=== PATIENT | female | born 1955 | race Caucasian/White ===

== ENCOUNTER 2021-04-05 15:52 | Emergency (ER) | payer MEDICARE, BC ==
[~2021-04-05] VITALS: Ht 167.6 cm; Wt 100.0 kg
[2021-04-05] MEDS ORDERED: ALLEGRA-D 2424 HOUR PO (19:32)
[2021-04-05] MEDS ORDERED: BACTRIM DS1 TAB PO (19:32)
[2021-04-05 19:38] VITALS: BP 180/80
== END 2021-04-05 20:04 | disposition home or self-care (01) ==
LOC: ED 15:52
DX: J01.80 Other acute sinusitis (principal); E11.9 Type 2 diabetes mellitus without complications; I50.9 Heart failure, unspecified; Z20.822 Contact with and (suspected) exposure to COVID-19

== ENCOUNTER 2022-02-11 09:00 | Day surgery (SDC) | payer MEDICARE, BC ==
[~2022-02-11] VITALS: Ht 167.6 cm; Wt 91.6 kg
[~2022-02-11 09:00] MED LIST: ALLEGRA-D 2424 HOUR PO; ASPIRIN81 MG PO; BACTRIM DS1 TAB PO; ELMIRON100 MG PO; ESTROVE1 PO; FARXIGA10 MG; FLUOXETINE20 MG PO; GABAPENTIN100 MG PO; GLIMEPIRIDE2 MG PO; IMIPRAMINE HCL10 MG PO; LIPITOR20 M1 PO; METFORMIN HCL1000 MG PO; METOPROL TAR25 MG PO; MULTI VIT PO; PANTOPRAZOLE SO40 M1 PO; ROPINIROLE0.5 MG PO; SPIRONOLACT50 MG PO; TRULICITY0.75 MG/0. IJ; VITA D-1000 PO; VITAMIN B-12500 MCG PO
[2022-02-11 12:30] VITALS: BP 130/76
== END 2022-02-11 12:20 | disposition home or self-care (01) ==
LOC: ORM 09:00
PROVIDERS: ATTEND Physical Medicine & Rehabilitation
DX: M54.16 Radiculopathy, lumbar region (principal); G89.4 Chronic pain syndrome; G62.9 Polyneuropathy, unspecified; M96.1 Postlaminectomy syndrome, not elsewhere classified
CPT/HCPCS: J1100; Q9967

== ENCOUNTER 2022-05-03 13:02 | Observation (INO) | payer MEDICARE, BC ==
[~2022-05-03] VITALS: Ht 167.6 cm; Wt 89.1 kg
[2022-05-03 16:23] LABS: BASO% 0.3 % (0-3); EOS% 2.3 % (0-8); HEMATOCRIT 42.3 % (37.0-47.0); HEMOGLOBIN 13.6 g/dl (12.0-16.0); IMMATURE GRANULOCYTES 0.5 % (0.0-5.0); LYMPH% 34.3 % (15-41); MEAN CELL VOLUME 87.6 fL CALC (80.0-100.0); MEAN CORPUSCULAR HGB 28.2 pG CALC (26.0-32.0); MEAN CORPUSCULAR HGB CONC 32.2 g/dL CAL (32.0-36.0); MONO% 9.7 % (2-13); NEUT# 3.27 thou/uL (2.00-7.15); NEUT% 52.9 % (42-76); RED BLOOD COUNT 4.83 mill/uL (4.20-5.60); RED CELL DISTRI WIDTH 14.2 % (11.5-15.5)
[2022-05-03 16:35] LABS: ALBUMIN 4.9 g/dL (3.2-5.0); ALKALINE PHOSPHATASE 62 u/l (38-126); ANION GAP 15 (6-22 (CALC)); BILIRUBIN, TOTAL 0.3 mg/dL (0.02-1.3); BUN 19 mg/dL (8-23); BUN/CREATININE RATIO 21 (12-20 (CALC)); CARBON DIOXIDE 25 mmol/l (22-30); CHLORIDE 102 mmol/l (95-108); CREATININE 0.9 mg/dL (0.5-1.0); GFR FOR AFR.AMER. > 60 ML/MIN (>=60 (CALC)); GFR OTHER RACES > 60 ML/MIN (>=60 (CALC)); LIPASE 49 u/l (23-300); POTASSIUM 4.5 mmol/l (3.5-5.1); SGOT/AST 51 u/l (9-36); SODIUM 137 mmol/l (137-146); TOTAL PROTEIN 8.9 g/dL (6.3-8.2)
[2022-05-04] VITALS (7 sets, daily range): BP systolic 98–151; BP diastolic 48–90
[2022-05-04 08:41] LABS: C. DIFFICILE TOXIN A&B NEGATIVE (NEGATIVE)
[2022-05-05 03:52] LABS: BASO% 0.3 % (0-3); EOS% 1.9 % (0-8); HEMOGLOBIN 13.7 g/dl (12.0-16.0); IMMATURE GRANULOCYTES 0.6 % (0.0-5.0); LYMPH% 28.5 % (15-41); MEAN CELL VOLUME 87.7 fL CALC (80.0-100.0); MEAN CORPUSCULAR HGB 28.6 pG CALC (26.0-32.0); MEAN CORPUSCULAR HGB CONC 32.6 g/dL CAL (32.0-36.0); MONO% 6.3 % (2-13); NEUT# 4.36 thou/uL (2.00-7.15); NEUT% 62.4 % (42-76); RED BLOOD COUNT 4.79 mill/uL (4.20-5.60); RED CELL DISTRI WIDTH 14.4 % (11.5-15.5)
[2022-05-05 04:03] LABS: ALBUMIN 4.7 g/dL (3.2-5.0); ALKALINE PHOSPHATASE 64 u/l (38-126); ANION GAP 15 (6-22 (CALC)); BILIRUBIN, TOTAL 0.3 mg/dL (0.02-1.3); BUN 14 mg/dL (8-23); BUN/CREATININE RATIO 16 (12-20 (CALC)); CHLORIDE 107 mmol/l (95-108); CREATININE 0.8 mg/dL (0.5-1.0); GFR FOR AFR.AMER. > 60 ML/MIN (>=60 (CALC)); GFR OTHER RACES > 60 ML/MIN (>=60 (CALC)); POTASSIUM 4.4 mmol/l (3.5-5.1); SGOT/AST 44 u/l (9-36); SODIUM 137 mmol/l (137-146); TOTAL PROTEIN 8.5 g/dL (6.3-8.2)
[2022-05-05 04:05] LABS: CARBON DIOXIDE 19 mmol/l (22-30)
[2022-05-05 07:13] VITALS: BP 134/69
[2022-05-05 09:10] VITALS: BP 123/63
[2022-05-05 10:55] VITALS: BP 127/78
[2022-05-05 14:27] VITALS: BP 105/56
[2022-05-05 19:03] VITALS: BP 141/58
[2022-05-06] VITALS (8 sets, daily range): BP systolic 122–169; BP diastolic 58–78
[2022-05-06 06:19] LABS: ALBUMIN 4.6 g/dL (3.2-5.0); ALKALINE PHOSPHATASE 73 u/l (38-126); ANION GAP 15 (6-22 (CALC)); BASO% 0.2 % (0-3); BILIRUBIN, TOTAL 0.3 mg/dL (0.02-1.3); BUN 13 mg/dL (8-23); BUN/CREATININE RATIO 17 (12-20 (CALC)); CARBON DIOXIDE 18 mmol/l (22-30); CHLORIDE 107 mmol/l (95-108); CREATININE 0.7 mg/dL (0.5-1.0); EOS% 1.9 % (0-8); GFR FOR AFR.AMER. > 60 ML/MIN (>=60 (CALC)); GFR OTHER RACES > 60 ML/MIN (>=60 (CALC)); HEMATOCRIT 43.7 % (37.0-47.0); HEMOGLOBIN 14.1 g/dl (12.0-16.0); IMMATURE GRANULOCYTES 0.5 % (0.0-5.0); LYMPH% 25.1 % (15-41); MEAN CELL VOLUME 88.6 fL CALC (80.0-100.0); MEAN CORPUSCULAR HGB 28.6 pG CALC (26.0-32.0); MEAN CORPUSCULAR HGB CONC 32.3 g/dL CAL (32.0-36.0); MONO% 7.7 % (2-13); NEUT# 3.79 thou/uL (2.00-7.15); NEUT% 64.6 % (42-76); RED BLOOD COUNT 4.93 mill/uL (4.20-5.60); RED CELL DISTRI WIDTH 14.3 % (11.5-15.5); SGOT/AST 37 u/l (9-36); SODIUM 136 mmol/l (137-146); TOTAL PROTEIN 8.3 g/dL (6.3-8.2)
[2022-05-06 06:24] LABS: POTASSIUM 3.5 mmol/l (3.5-5.1)
[2022-05-07 04:18] VITALS: BP 125/60
[2022-05-07 06:12] LABS: BASO% 0.6 % (0-3); EOS% 1.7 % (0-8); HEMATOCRIT 42.6 % (37.0-47.0); HEMOGLOBIN 13.9 g/dl (12.0-16.0); IMMATURE GRANULOCYTES 0.6 % (0.0-5.0); LYMPH% 34.2 % (15-41); MEAN CELL VOLUME 87.1 fL CALC (80.0-100.0); MEAN CORPUSCULAR HGB 28.4 pG CALC (26.0-32.0); MEAN CORPUSCULAR HGB CONC 32.6 g/dL CAL (32.0-36.0); MONO% 8.9 % (2-13); NEUT# 2.78 thou/uL (2.00-7.15); RED BLOOD COUNT 4.89 mill/uL (4.20-5.60); RED CELL DISTRI WIDTH 14.3 % (11.5-15.5)
[2022-05-07 06:34] LABS: ALBUMIN 4.2 g/dL (3.2-5.0); ALKALINE PHOSPHATASE 66 u/l (38-126); ANION GAP 14 (6-22 (CALC)); BILIRUBIN, TOTAL 0.4 mg/dL (0.02-1.3); BUN 9 mg/dL (8-23); BUN/CREATININE RATIO 13 (12-20 (CALC)); CARBON DIOXIDE 18 mmol/l (22-30); CHLORIDE 110 mmol/l (95-108); CREATININE 0.7 mg/dL (0.5-1.0); GFR FOR AFR.AMER. > 60 ML/MIN (>=60 (CALC)); GFR OTHER RACES > 60 ML/MIN (>=60 (CALC)); POTASSIUM 3.5 mmol/l (3.5-5.1); SGOT/AST 41 u/l (9-36); SODIUM 138 mmol/l (137-146); TOTAL PROTEIN 7.6 g/dL (6.3-8.2)
[2022-05-07 07:00] VITALS: BP 128/59
[2022-05-07 10:25] VITALS: BP 108/59
[2022-05-07 14:25] VITALS: BP 125/92
== END 2022-05-07 16:02 | disposition home health service (06) ==
LOC: ED 13:02 → MS2 19:17
PROVIDERS: Emergency Medicine; Nurse Practitioner Family; ADMIT Internal Medicine; ATTEND Internal Medicine
DX: G43.909 Migraine, unspecified, not intractable, without status migrainosus (principal); R19.7 Diarrhea, unspecified; E86.0 Dehydration; E11.649 Type 2 diabetes mellitus with hypoglycemia without coma; K58.9 Irritable bowel syndrome, unspecified; I50.9 Heart failure, unspecified; M79.7 Fibromyalgia; I73.00 Raynaud's syndrome without gangrene; Z79.84 Long term (current) use of oral hypoglycemic drugs; Z20.822 Contact with and (suspected) exposure to COVID-19
CPT/HCPCS: J1650; Q9967

== ENCOUNTER 2022-06-03 07:01 | Day surgery (SDC) | payer MEDICARE, BC ==
[~2022-06-03] VITALS: Ht 167.6 cm; Wt 91.6 kg
[~2022-06-03 07:01] MED LIST changes: +LISINOPRIL5 MG PO; +TIZANIDINE2 MG PO
[2022-06-03 10:43] VITALS: BP 181/89
== END 2022-06-03 10:30 | disposition home or self-care (01) ==
LOC: ORM 07:01
PROVIDERS: ATTEND Physical Medicine & Rehabilitation
DX: M54.16 Radiculopathy, lumbar region (principal); M96.1 Postlaminectomy syndrome, not elsewhere classified
CPT/HCPCS: J1100; Q9966

== ENCOUNTER 2023-03-24 07:23 | Day surgery (SDC) | payer MEDICARE, BC ==
[~2023-03-24] VITALS: Ht 167.6 cm; Wt 87.5 kg
[2023-03-24 10:17] VITALS: BP 152/90
== END 2023-03-24 09:40 | disposition home or self-care (01) ==
LOC: ORM 07:23
PROVIDERS: ATTEND Student in an Organized Health Care Education/Training Program
DX: G89.4 Chronic pain syndrome (principal); M54.16 Radiculopathy, lumbar region; G62.9 Polyneuropathy, unspecified; M54.12 Radiculopathy, cervical region
CPT/HCPCS: A9585; J1100; Q9967

== ENCOUNTER 2024-05-10 06:50 | Day surgery (SDC) | payer MEDICARE, BC ==
[~2024-05-10] VITALS: Ht 167.6 cm; Wt 87.5 kg
[~2024-05-10 06:50] MED LIST changes: +LEVEMIR100 UNIT SC; +NOVOLOG100 UNIT SC
[2024-05-10] MEDS ORDERED: LIDOCAINE HCL 1% (10MG/ML) 100 MG/10 ML MDV ONE ×2 (06:54→07:33)
[2024-05-10] MEDS ORDERED: SODIUM CHLORIDE 0.9% 10 ML SYR ONE (06:55)
[2024-05-10] MEDS ORDERED: SODIUM CHLORIDE 20 ML/VIAL SDV ONE ×2 (06:58→07:27)
[2024-05-10] MEDS ORDERED: Iopamidol 61% 5 ML SYR IV ONE (07:17)
[2024-05-10] MEDS ORDERED: MIDAZOLAM HCL 2 MG/2 ML VIAL ONE (07:28)
[2024-05-10] MEDS ORDERED: GADOPICLENOL (VUEWAY) 0.5 MM/ML 3.75MM/7.5ML VIAL IV ONE (07:32)
[2024-05-10 09:12] VITALS: BP 147/77
== END 2024-05-10 08:23 | disposition home or self-care (01) ==
LOC: ORM 06:50
PROVIDERS: ATTEND Student in an Organized Health Care Education/Training Program
DX: M54.16 Radiculopathy, lumbar region (principal); G89.4 Chronic pain syndrome; G62.9 Polyneuropathy, unspecified; M54.12 Radiculopathy, cervical region
CPT/HCPCS: A9573; J1100; Q9967